=== PATIENT | female | born 1970 | race Caucasian/White ===

== ENCOUNTER 2017-01-16 16:00 | Emergency (ER) | payer BC ==
--- NOTE | ~2017-01-16 | ER ---
PATIENT'S NAME: WAQAS [facility]AMPBELL [facility] AGE: 46 Y [address] ROOM: [place] [address] LOCATION: [facility] ADMIT DATE: 01/16/2017 ER/Outpatient Report DISCHARGE DATE: 01/16/2017 FAMILY PHYSICIAN: Huang Pereira MD ATTENDING PHYSICIAN: Eloisa Vigil Time of patient's Arrival: 1600 hours. Time of patient's evaluation: 1607. CHIEF COMPLAINT: Severe left flank pain. HISTORY OF PRESENT ILLNESS: This is a 46-year-old female, who presents to the ER. She states she had a sudden onset of left flank pain. This started approximately 30 minutes prior to arrival. The patient states she was at [facility], getting some medication for her son when it started. She states that it makes her feel nauseated. She has had vomiting with it. She tried going to the urgent care [facility] and they told her that they could not help her there, and so she had her bring her here. She states she has had pain like this before in the past and was diagnosed with an ovarian cyst. She states that she felt fine earlier today. She has had no fever or chills. No troubles with bowel movements. No troubles with urination. She denies any other problems at this time. ALLERGIES: NO KNOWN ALLERGIES. MEDICATIONS: Please see medication list in the nurse's notes. PAST MEDICAL HISTORY: She has had a DVT in her left leg and ovarian cyst. She has a clotting disorder and lupus. PAST SURGICAL HISTORY: . She has had a breast lumpectomy and a hysterectomy. SOCIAL HISTORY: She drinks alcohol socially. Denies any smoking use. REVIEW OF SYSTEMS: All systems reviewed and are negative with the exception of those discussed in the HPI. PHYSICAL EXAMINATION: PATIENT'S NAME: WAQAS [facility]AMPBELL [facility] AGE: 46 Y [address] ROOM: [place] [address] LOCATION: [facility] ADMIT DATE: 01/16/2017 ER/Outpatient Report DISCHARGE DATE: 01/16/2017 FAMILY PHYSICIAN: Huang Pereira MD ATTENDING PHYSICIAN: Eloisa Vigil VITAL SIGNS: Height 5 feet 6 inches stated, weight 70.9 kg taken, blood pressures 112/60, pulse is 108, respirations 36, temperature is 98.2 degrees tympanically, and saturations 95% on room air. Poli Coma Score is 15. GENERAL: Alert and anxious 46-year-old, female in moderate distress. HEENT: Head normocephalic. Eyes, pupils are equal and reactive to light. She does display moist mucous membranes. LUNGS: Clear to auscultation bilaterally. HEART: Tachycardic. Normal rhythm. ABDOMEN: Soft. She does have some left-sided abdominal pain along with CVA tenderness on the left side. EXTREMITIES: No clubbing or cyanosis. She does have full range of motion of all limbs. She does have carpopedal spasms noted to her upper and lower extremities. LABORATORY DATA: CBC: White count of 7.6, hemoglobin is 14.9, platelets 169. ANC is 4.5. CMS was unremarkable. Urinalysis was negative for any infection. CT scan per stone protocol was done and does show a 3.3 cm left ovarian cyst. She has no kidney stone noted. No hydronephrosis. Ultrasound was done of the pelvis, which shows good blood flow to the ovary. IMPRESSION: Left-sided flank pain most likely due to a left ovarian cyst. ASSESSMENT AND PLAN: We did start an IV here in the emergency room. We did give her some IV fluids along with 4 mg of Zofran for her nausea. We gave her 30 mg of Toradol IV, morphine 2 mg IV, 0.5 mg of Dilaudid IV, 1 mg of Ativan IV over her ER course here. After she had the Ativan, she did calm down nicely and her pain was more under control. The patient states that she would like to try to do this at home with pain medication. We did give her 2 Percocet here in the ER prior to her dismissal. I will send her home with a prescription for Percocet and Zofran to use as directed. I did notify her primary care physician Dr. Barger, if she is not doing well with oral pain medications. She is to call Dr. Pereira and let him know. She needs to continue to push fluids, monitor symptoms, and follow up with primary care physician in 1 to 3 days if she is doing okay. The patient understands and agrees with care. TANVI SALDANA PA-C FOR ELOISA VIGIL MD ACJ/modl PATIENT'S NAME: WAQAS [facility]LL [facility] AGE: 46 Y [address] ROOM: [place] [address] LOCATION: ED ADMIT DATE: 01/16/2017 ER/Outpatient Report DISCHARGE DATE: 01/16/2017 FAMILY PHYSICIAN: Huang Pereira MD ATTENDING PHYSICIAN: Eloisa Vigil /[id number] d: t: 01/20/17 1226, OUTPATIENT REPORT
[2017-01-16 16:25] LABS: BASOPHIL # 0.1 K/uL (0.0-0.2); BASOPHIL % 0.7 %; EOSINOPHIL # 0.1 K/uL (0.0-0.5); EOSINOPHIL % 1.3 %; HEMATOCRIT 43.4 % (33.0-46.0); HEMOGLOBIN 14.9 g/dL (10.0-15.0); IMMATURE GRANULOCYTE % 0.1 %; LYMPHOCYTE # 2.3 K/uL (0.8-4.0); LYMPHOCYTE % 30.4 %; MCH 31.8 pg (27.0-34.0); MCHC 34.3 gm/dL (32.0-36.5); MCV 92.7 fl (83.0-98.0); MONOCYTE # 0.6 K/uL (0.0-1.0); MONOCYTE % 7.8 %; MPV 11.8 fl (9.4-12.4); NEUTROPHIL # (ANC) 4.5 K/uL (1.8-7.8); NEUTROPHIL % 59.7 %; NRBC % 0 /100WBC (0-0.00); PLATELET COUNT 169 K/uL (150-450); RDW-CV 12.5 % (11.9-14.6); WBC 7.6 K/uL (4.0-11.0)
[2017-01-16 16:26] LABS: RBC 4.68 M/uL (3.50-5.50)
[2017-01-16 16:40] LABS: ALBUMIN 4.3 gm/dL (3.5-5.0); ANION GAP 14.5 (10.0-19.0); CALCIUM 9.5 mg/dL (8.5-10.5); CREATININE 1.2 mg/dL (0.5-1.1); POTASSIUM 4.5 mMol/L (3.7-5.1); TOTAL BILIRUBIN 0.7 mg/dL (0.0-1.5); TOTAL PROTEIN 8.2 g/dL (6.0-8.4)
[2017-01-16 17:57] LABS: BILIRUBIN URINE NEGATIVE (NEGATIVE); BLOOD URINE NEGATIVE /UL (NEGATIVE); COLOR URINE YELLOW (YELLOW); GLUCOSE URINE NEGATIVE (NEGATIVE); KETONE URINE 50 mg/dL (NEGATIVE); LEUKOCYTES URINE 25 /UL (NEGATIVE); NITRITE URINE NEGATIVE (NEGATIVE); PROTEIN URINE NEGATIVE (NEGATIVE); TURBIDITY URINE CLEAR (CLEAR); UROBILINOGEN URINE 1 mg/dL (NORMAL)
[2017-01-16 18:05] LABS: AMORPHOUS URINE 2+ (NEGATIVE); BACTERIA URINE RARE (NEGATIVE); RBC URINE NEGATIVE #/HPF (NEGATIVE); WBC URINE 0-2 #/HPF (NEGATIVE)
== END 2017-01-16 18:47 | disposition disaster alternative care site (69) ==
LOC: GMED 16:00
PROVIDERS: Physician Assistant Medical
DX: R10.9 Unspecified abdominal pain (principal); N83.202 Unspecified ovarian cyst, left side; Z86.718 Personal history of other venous thrombosis and embolism; Z98.890 Other specified postprocedural states; Z90.710 Acquired absence of both cervix and uterus
CPT/HCPCS: J1170; J2060